=== PATIENT | female | born 1995 | race Caucasian/White ===

== ENCOUNTER 2017-02-08 08:19 | Emergency (ER) | payer OTHER ==
[~2017-02-08] VITALS: Ht 170.2 cm; Wt 96.6 kg
[~2017-02-08 08:19] MED LIST: AUVI-Q0.3 MG/0.3 IM; ESOMEPRAZOLE MA40 MG PO; METHYLPHENIDATE54 M1 PO; RIZATRIPTAN BEN10 MG PO; SINGULAIR10 MG PO; SYMBICORT 160/41 PUF INH; TRI PREVIFEM PO; XOLAIR150 MG SC; XOPENEX HFA45 MCG INH
--- NOTE | 2017-02-08 08:31 | ED GENERAL ADULT ---
History of Present Illness General Chief Complaint: Abdominal Pain/Flank Pain Stated Complaint: "PER PT ABD PAIN" Source: patient Exam Limitations: no limitations Vital Signs & Intake/Output Vital Signs & Intake/Output Vital Signs Date Time Temp Pulse Resp B/P B/P Pulse O2 O2 Flow FiO2 Mean Ox Delivery Rate 02/08 0900 Room Air Room Air 02/08 0821 96.6 78 16 144/79 96 Room Air Allergies Coded Allergies: aspirin (Severe, BREATHING DIFFICULTIES. 01/14/17) coconut oil (Severe, RASH, THROAT CLOSURE 01/14/17) shellfish derived (Severe, RASH, THROAT CLOSURE 01/14/17) MDX - Dairy Food (DAIRY FOOD) (Intermediate, GI UPSET 01/19/15) strawberry (Intermediate, RASH 01/14/17) NSAIDS (Non-Steroidal Anti-Inflamma (DIFFICULTY BREATHING 01/14/17) Reconcile Medications Budesonide/Formoterol Fumara (Symbicort 160-4.5 Mcg Inhaler) 160 MCG/4.5 MCG PUF 2 PUF INH DAILY ASTHMA (Reported) Epinephrine (Auvi-Q) 0.3 MG/0.3 ML AUTO.INJCT 0.3 MG IM PRN ANAPHYLAXIS ( Reported) Esomeprazole Magnesium 40 MG CAPSULE.DR 1 CAP PO DAILY AC GI (Reported) Ethinyl Estradiol/Norgestima (Tri-Previfem 35 Mcg-0.25 MG) (Unknown Strength) TAB (Unknown Dose) PO DAILY CONTROL (Reported) Levalbuterol Tartrate (Xopenex HFA) 45 MCG/ACTUATION HFA.AER.AD 2 PUF INH Q4-6 PRN PRN ASTHMA (Reported) METHYLPHENIDATE HCL (Methylphenidate ER) 54 MG TAB.ER.24 1 TAB PO QAM ADHD ( Reported) Montelukast Sodium (Singulair) 10 MG TABLET 1 TAB PO DAILY ASTHMA (Reported) Omalizumab (Xolair) (Unknown Strength) VIAL (Unknown Dose) SC Q3W ALLERGIES ( Reported) Rizatriptan Benzoate (Rizatriptan) 10 MG TABLET 1 TAB PO PRN MIGRAINES ( Reported) Triage Note: 21 Y/O FEMALE C/O 10 DAY HISTORY MID ABDOMINAL PAIN RADIATING UNDER L BREAST AND DIARRHEA; SAW PMD AND HAD OUTPATIENT BLOODWORK AND STOOL SAMPLE DONE WITH NO RESULTS OF YET. PT STATES PAIN WAS "THE WORST ITS BEEN" THIS MORNING WHILE AT WORK. DENIES URINARY SYMPTOMS. DENIES VOMITING. AFEBRILE Triage Nurses Notes Reviewed? yes Onset: Abrupt Duration: day(s): Timing: recent history : No Patient currently breastfeeds: No HPI: 02/08/17 9 am 21-year-old female presents to the emergency department for abdominal pain and diarrhea. According to the patient she was in her usual state of health until early this week when she developed epigastric and left lower quadrant abdominal pain. The pain is intermittent and cramping. She says that she also has multiple episodes of diarrhea. No vomiting. No fever. The onset his symptoms have been abrupt, the duration has been several days, the severity is significant; as her symptoms required her to come to the emergency department for care. Her last menstrual period was 4 days ago. She denies any possibility of . No blood in the stool, she does say there was mucus in the stool. Stool cultures were negative at her Primary Care Doctor's Office on Saturday. Past History Travel History Traveled to [place] past 21 day No Medical History Any Pertinent Medical History? 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 No Review of Systems Review of Systems Constitutional: Denies: fever. EENTM: Denies: visual changes. Respiratory: Reports: see HPI. Cardiovascular: Denies: chest pain. GI: Reports: abdominal pain, diarrhea, nausea. Denies: vomiting. Genitourinary: Reports: no symptoms. Musculoskeletal: Reports: no symptoms. Skin: Reports: no symptoms. Neurological/Psychological: Reports: no symptoms. Hematologic/Endocrine: Reports: no symptoms. Immunologic/Allergic: Reports: no symptoms. Physical Exam Physical Exam General Appearance: well developed/nourished, alert, awake, anxious, mild distress Head: atraumatic, normal appearance Eyes: Bilateral: normal appearance, PERRL, EOMI. Ears, Nose, Throat: normal pharynx, normal ENT inspection Neck: normal inspection, full range of motion Respiratory: normal breath sounds, chest non-tender, no respiratory distress Cardiovascular: regular rate/rhythm Gastrointestinal: soft, tenderness, epigastric Back: normal range of motion Extremities: normal inspection, normal range of motion, no edema Neurologic/Psych: no motor/sensory deficits, awake, alert, oriented x 3 Skin: intact, normal color, warm/dry Core Measures ACS in differential dx? No CVA/TIA Diagnosis: No Severe Sepsis Present: No Septic Shock Present: No Progress Differential Diagnoses I considered the following diagnoses in my evaluation of the patient: [ Appendicitis, cholelithiasis, cholecystitis, gastroenteritis, infectious diarrhea, irritable bowel syndrome, pulmonary embolism, viral syndrome, inflammatory bowel disease] Plan of Care: Orders Procedure Date/time Status D-DIMER 02/08 08 Complete COMPREHENSIVE METABOLIC PANEL 02/08 842 Complete CBC WITHOUT DIFFERENTIAL 02/08 842 Complete AMYLASE 02/08 842 Complete Add-on Test (ER Only) 02/08 0831 Active CULTURE,URINE 02/08 830 Active URINE 02/08 830 Complete URINALYSIS 02/08 08 Complete Laboratory Tests 02/08/17 0857: Anion Gap 8, Estimated GFR > 60, BUN/Creatinine Ratio 12.5, Glucose 93, Calcium 9.2, Total Bilirubin 0.4, AST 19, ALT 37, Alkaline Phosphatase 71, Total Protein 7.2, Albumin 3.9, Globulin 3.3, Albumin/Globulin Ratio 1.2, Amylase 40, D-Dimer 261 H, CBC w Diff NO MAN DIFF REQ, RBC 4.89, MCV 81.2, MCH 26.8 L, RDW 13.0, MPV 9.4, Gran % 68.8, Lymphocytes % 19.6 L, Monocytes % 9.6 H, Eosinophils % 1.6, Basophils % 0.4, Absolute Granulocytes 4.1, Absolute Lymphocytes 1.2, Absolute Monocytes 0.6, Absolute Eosinophils 0.1, Absolute Basophils 0, PUBS MCHC 33.0 02/08/17 0850: Urine Color YEL, Urine Clarity CLEAR, Urine pH 6.5, Ur Specific [place] 1.010, Urine Protein NEG, Urine Ketones NEG, Urine Nitrite NEG, Urine Bilirubin NEG, Urine Urobilinogen 0.2, Ur Leukocyte Esterase TRACE H, Ur Microscopic SEDIMENT EXAMINED, Urine RBC RARE, Urine WBC 3-5 H, Ur Epithelial Cells MOD H, Urine Bacteria FEW H, Urine Mucus RARE, Urine Hemoglobin NEG, Urine Glucose NEG, Urine Test NEGATIVE Microbiology 02/08 0850 URINE ROUT: Urine Culture - RECD Initial ED EKG: none Departure Departure Disposition: STILL A PATIENT Condition: Stable Clinical Impression Primary Impression: Abdominal pain Secondary Impressions: Diarrhea Referrals: JOSE DRAPER MD (PCP/Family) Departure Forms: Customer Survey General Discharge Information Comments The patient was treated with IV fluids. Labs were repeated. Bentyl was given by mouth. An abdominal ultrasound was requested to rule out cholelithiasis. 02/08/17 10:30 AM The patient's abdominal pain improved with Bentyl. Ultrasound was negative for cholelithiasis or cholecystitis. Labs were essentially unremarkable. There was a slight elevation in her d-dimer level. The patient denies any shortness of breath upon requestioning. She says that when she gets the pain it makes her suddenly stopped breathing. I discussed the d-dimer result and she will return to the emergency department should she develop shortness of breath or feel worse. Shared decision-making was utilized in the care of this patient. Critical Care Note Critical Care Note Critical Care Time: non-applicable
[2017-02-08 09:11] LABS: ABSOLUTE BASOPHIL COUNT 0 /CUMM (0.0-0.2); ABSOLUTE EOSINOPHIL COUNT 0.1 /CUMM (0.0-0.7); ABSOLUTE GRANULOCYTE CT 4.1 /CUMM (1.4-6.5); ABSOLUTE LYMPH COUNT 1.2 /CUMM (1.2-3.4); ABSOLUTE MONOCYTE COUNT 0.6 /CUMM (0.10-0.60); BASOPHIL % 0.4 % (0.0-2.0); EOSINOPHIL % 1.6 % (0-5); GRANULOCYTE % 68.8 % (42.2-75.2); HEMATOCRIT 39.7 % (37-47); MEAN CORPUSCULAR HGB 26.8 PG (27.0-31.0); MEAN CORPUSCULAR VOLUME 81.2 FL (81.0-99.0); MEAN PLATELET VOLUME 9.4 FL (7.4-10.4); PLATELET COUNT 274 /CUMM (130-400); RED BLOOD CELL CT 4.89 /CUMM (4.20-5.40); WHITE BLOOD CELL COUNT 5.9 /CUMM (4.8-10.8)
--- NOTE | 2017-02-08 10:08 | ULTRASOUND REPORT ---
EXAMINATION: ABDOMINAL ULTRASOUND CLINICAL INFORMATION: Abdominal pain, evaluate for cholelithiasis. COMPARISON: None. TECHNIQUE: Routine grayscale and color Doppler imaging is provided for interpretation. Selected static images are provided for interpretation. FINDINGS: Only a small portion of the body of the pancreas is well-visualized and appears unremarkable. Remaining pancreas is obscured due to overlying bowel gas despite provocative measures. The technologist believes the liver is mildly enlarged, however no measurements are provided. Right lobe measures at least 18 cm craniocaudal dimension on one of the images. This is likely a prominent Job's lobe. The liver, gallbladder, and biliary tree otherwise appear unremarkable. The extrahepatic common duct is non dilated measuring 0.3 maximal dimension. Right kidney is normal in size and echogenicity measuring 11.9 cm in maximal longitudinal dimension. There is no hydronephrosis or nephrolithiasis identified. There is no intraperitoneal free fluid identified. The visualized portions of the upper abdominal aorta and IVC appear unremarkable. IMPRESSION: Limited pancreatic visualization. Questionable liver enlargement noted by the technologist's likely a prominent Job's lobe, normal variation. No evidence of cholelithiasis or acute cholecystitis.
[2017-02-08] MEDS ORDERED: BENTYL10 M1 PO (10:28)
[2017-02-08] MEDS ORDERED: ZOFRAN4 M2 PO (10:41)
[2017-02-08 10:43] VITALS: BP 126/67
== END 2017-02-08 10:43 ==
LOC: ERH 08:19
PROVIDERS: Emergency Medicine
DX: R10.13 Epigastric pain (principal); R19.7 Diarrhea, unspecified
CPT/HCPCS: 81001; 81025; 87086